=== PATIENT | male | born 1980 | race African-American/Black ===

== ENCOUNTER 2017-09-10 14:21 | Outpatient (CLI) | payer OTHER | END 2017-09-10 14:22 | disposition home or self-care (01) | LOC: BICULT 14:21 | PROVIDERS: ATTEND Urology | DX: N39.41 Urge incontinence (principal) | CPT/HCPCS: 76770 ==

== ENCOUNTER 2017-09-24 09:51 | Day surgery (SDC) | payer OTHER ==
[2017-09-24] MEDS ORDERED: Levofloxacin 500 mg/D5W 100 ml Premix Bag ONE (10:47)
--- NOTE | 2017-09-24 13:49 | OP ---
DATE OF PROCEDURE: 09/24/2017 SERVICE: Urology. SURGEON: Will Iverson M.D. PREOPERATIVE DIAGNOSIS: Neurogenic bladder with overactive bladder and urge incontinence. POSTOPERATIVE DIAGNOSIS: Neurogenic bladder with overactive bladder and urge urinary incontinence. PROCEDURE PERFORMED: Cystoscopy with Botox. INDICATIONS FOR PROCEDURE: Mr. Gutierrez is a 36-year-old black male with a spinal cord injury and neurogenic bladder. He has severe detrusor overactivity with urge incontinence, which has failed to be managed with medical therapy alone. He has been doing well on Botox and is coming in for repeat i njection of 200 units today. All risks and benefits have been discussed and he has agreed to proceed forward. DESCRIPTION OF PROCEDURE: After identification of armband and verification of consent, the patient w as brought back to the operating room where he was placed in dorsal lithotomy position and prepped an d draped in a usual sterile fashion. He did not undergo any anesthesia as the patient is insensate b elow the navel. A rigid 22-Mexican cystoscope was introduced per urethra into the bladder. The bladd er shows signs of spasticity with a grade II trabeculation and mild diffuse erythema, but no evidence of bladder stones, tumors or other concerning lesions. The Botox needle was set to a depth of 4 mm and Botox was injected for a total of 200 units dispersed in 1 mL increments for a total of 30 inject ions throughout the bladder primarily along the posterior and anterior bladder and some on the latera l and one intertrigonal injection in the midline. No injections were performed near the ureteral moise fices. After completion, there was a very minimal amount of bleeding. The bladder was emptied and c ystoscope removed. The patient was then taken out of lithotomy and sent to day stay. COMPLICATIONS: None. ESTIMATED BLOOD LOSS: Minimal. RETAINED TUBES AND DRAINS: None. SPECIMENS: None. DISPOSITION: The patient will be discharged home and follow up with me in 4 weeks. He will do 1 wee k of antibiotics and he will remain on his Toviaz.
== END 2017-09-24 12:20 | disposition home or self-care (01) ==
LOC: SDC 09:51
PROVIDERS: ATTEND Urology
PROC: 3E0K8GC Introduction of Other Therapeutic Substance into Genitourinary Tract, Via Natural or Artificial Opening Endoscopic (ICD-10-PCS; principal; 2017-09-24)
DX: T14.8XXS Other injury of unspecified body region, sequela (principal); N31.9 Neuromuscular dysfunction of bladder, unspecified; N39.41 Urge incontinence; N32.81 Overactive bladder; G82.20 Paraplegia, unspecified; K59.01 Slow transit constipation; Z79.899 Other long term (current) drug therapy
CPT/HCPCS: J0585; J1956

== ENCOUNTER 2018-01-06 09:00 | Outpatient (CLI) | payer OTHER ==
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
== END 2018-01-06 09:01 | disposition home or self-care (01) ==
LOC: WCC 09:00
PROVIDERS: ATTEND Family Medicine
DX: L89.159 Pressure ulcer of sacral region, unspecified stage (principal); L89.319 Pressure ulcer of right buttock, unspecified stage; N31.9 Neuromuscular dysfunction of bladder, unspecified; T14.8XXD Other injury of unspecified body region, subsequent encounter
CPT/HCPCS: 11042; 99204; G0463

== ENCOUNTER 2018-01-06 10:45 | Outpatient (CLI) | payer OTHER ==
--- NOTE | 2018-01-06 11:24 | RAD ---
SINGLE VIEW OF THE PELVIS: Comparison: None. History: Pressure ulcer and osteomyelitis. FINDINGS: Single view of the pelvis shows remodeling of the ischial tuberosity which may by findings from chron ic osteomyelitis. There is also a remodeling in the proximal aspect of the left femur just beneath th e lesser trochanter. Mild degenerative changes are seen in both hips. IMPRESSION: Findings in the left femur and ischial tuberosity could be from bony changes from pressure sore/osteo myelitis. POS: GÉNESIS
== END 2018-01-06 10:46 | disposition home or self-care (01) ==
LOC: RAD 10:45
PROVIDERS: ATTEND Family Medicine
DX: L89.209 Pressure ulcer of unspecified hip, unspecified stage (principal); M86.8X5 Other osteomyelitis, thigh
CPT/HCPCS: 72170

== ENCOUNTER 2018-01-29 10:18 | Outpatient (CLI) | payer OTHER ==
[2018-01-29] MEDS ORDERED: ISOVUE-370 76%-LOCM 1 ML ONE (14:46)
== END 2018-01-29 10:19 | disposition home or self-care (01) ==
LOC: BICCT 10:18
PROVIDERS: ATTEND Family Medicine
DX: L89.150 Pressure ulcer of sacral region, unstageable (principal)
CPT/HCPCS: 72194

== ENCOUNTER 2018-02-18 08:15 | Outpatient (CLI) | payer OTHER ==
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
[2018-02-18] MEDS ORDERED: Sodium Chloride 0.9% 15 ML NEB ONE (12:59)
== END 2018-02-18 08:16 | disposition home or self-care (01) ==
LOC: WCC 08:15
PROVIDERS: ATTEND Family Medicine
DX: L89.159 Pressure ulcer of sacral region, unspecified stage (principal); N31.9 Neuromuscular dysfunction of bladder, unspecified; T14.8XXD Other injury of unspecified body region, subsequent encounter
CPT/HCPCS: A4218

== ENCOUNTER 2021-11-15 01:17 | Inpatient (IN) | payer MEDICAID, SELFPAY ==
[2021-11-15] MEDS ORDERED: Cefepime 2 GM VIAL ONE (01:40)
[2021-11-15] MEDS ORDERED: Vancomycin 1 GM/200 ML BAG ONE (01:40)
[2021-11-15 03:17] LABS: Mean Corpuscular HGB CONC 31.2 g/dL (32.0-36.0); Mean Corpuscular Hemoglobin 26.5 pg (27.0-31.0); Mean Corpuscular Volume 84.9 fL (78.0-98.0); Platelet Count 518 thou/uL (130-400); RBC Distribution Width 15.6 % (11.5-14.5); Red Blood Cell (RBC) Count 3.76 mill/uL (4.70-6.10)
[2021-11-15 03:35] LABS: ALT (SGPT) 56 U/L (8-55); AST (SGOT) 78 U/L (5-34); Albumin 2.7 g/dL (3.5-5.0); Alkaline Phosphatase 127 U/L (40-110); Anion Gap 14 mmol/L (10-20); BUN (Urea Nitrogen) 5 mg/dL (8.9-20.6); Bilirubin, Total 0.8 mg/dL (0.2-1.2); Calc. Creatinine Clearance 0 mL/min (70-130); Calcium 8.3 mg/dL (7.8-10.44); Carbon Dioxide 27 mmol/L (22-29); Chloride 96 mmol/L (98-107); Globulin 5.7 g/dL (2.4-3.5); Glucose 120 mg/dL (70-105); Potassium 4.9 mmol/L (3.5-5.1); Protein, Total 8.4 g/dL (6.0-8.3); Sodium 132 mmol/L (136-145)
[2021-11-15] MEDS ORDERED: Acetaminophen 500 MG TAB ONE (03:39)
[2021-11-15 03:41] LABS: Band 7 % (5-11); Eosinophils 2 % (0-10); Hypochromia MODERATE=16-30 cells (100X) (0-5/hpf); Large Platelets SLIGHT; Lymphocytes 19 % (21-51); MDiff Complete? YES; Metamyelocyte 1 % (0-0); Monocytes 8 % (0-10); Neutrophil 63 % (42-75); Platelet Morphology Comment Appears Increased; Polychromasia SLIGHT = 2-3 cells (100X) (0-2/hpf); Reflex for Review?? YES
[2021-11-15 03:57] LABS: Bilirubin 1+ (Negative); Blood, Urine 1+ (Negative); Clarity Extra Turbid (Clear); Glucose, Urine (Dipstick) Normal (Negative); Ketone, Urine Negative (Negative); Leukocyte 500 Leu/uL (Negative); Nitrite 2+ (Negative); Protein, Urine (Dipstick) 100 mg/dL (Neg-Trace); Specific Gravity, Urine 1.028 (1.002-1.036)
[2021-11-15 04:17] LABS: Bacteria/HPF 4+ HPF (None Seen)
[2021-11-15 04:21] LABS: Squamous Epithelial 0-3 HPF (0-3); WBC/HPF 0-3 HPF (0-3)
[2021-11-15 05:47] LABS: Lactic Acid 0.9 mmol/L (0.5-2.2)
[2021-11-15 05:54] VITALS: BMI 25.9
[2021-11-15] MEDS: Dextrose 5 % And 0.9 % NaCl 1,000 ML IV SCH ×2 (07:20→17:35)
[2021-11-15] MEDS ORDERED: Acetaminophen 325 MG TAB PO PRN (07:25)
[2021-11-15] MEDS ORDERED: Senokot S 8.6-50 MG TAB PO PRN (07:25)
[2021-11-15] MEDS ORDERED: Sodium Chloride 0.9% 1,000 ML IV SCH (08:30)
[2021-11-15] MEDS: Famotidine 20 MG TAB PO SCH ×2 (10:13→20:00)
[2021-11-15] MEDS: Cefepime 2 GM in Sodium Chloride 0.9% 100 ML IVPB SCH ×2 (10:36→18:03)
[2021-11-15] MEDS: VANCOMYCIN 1.25 GM/250 ML BAG 1.25 GM in Premix Bag 1 BAG IVPB SCH ×2 (11:43→19:03)
[2021-11-15 15:22] LABS: SARS-CoV-2 PCR by NAA Not Detected (NotDetected)
[2021-11-15] MEDS: Sodium Chloride 0.9% 1,000 ML IV SCH (20:00)
[2021-11-16 01:57] LABS: Vancomycin, Trough 15.8 ug/mL
[2021-11-16] MEDS: VANCOMYCIN 1.25 GM/250 ML BAG 1.25 GM in Premix Bag 1 BAG IVPB SCH ×3 (02:07→18:09)
[2021-11-16] MEDS: Cefepime 2 GM in Sodium Chloride 0.9% 100 ML IVPB SCH ×3 (03:44→20:31)
[2021-11-16] MEDS: Sodium Chloride 0.9% 1,000 ML IV SCH ×2 (03:45→15:50)
[2021-11-16 06:20] LABS: #Eosinphils 0.4 thou/uL (0.0-0.7); #Lymphocytes 1.2 thou/uL (1.20-3.40); #Monocytes 0.7 thou/uL (0.11-0.59); #Neutrophils 7.8 thou/uL (1.40-6.50); %Basophils 0.1 % (0.0-1.0); %Eosinophils 3.6 % (0.0-10.0); %Lymphocytes 12.2 % (21.0-51.0); %Monocytes 7.2 % (0.0-10.0); Mean Corpuscular HGB CONC 30.6 g/dL (32.0-36.0); Mean Corpuscular Hemoglobin 26.2 pg (27.0-31.0); Mean Corpuscular Volume 85.5 fL (78.0-98.0); Mean Platelet Volume 6.3 fL (7.4-10.4); Platelet Count 438 thou/uL (130-400); RBC Distribution Width 15.2 % (11.5-14.5); Red Blood Cell (RBC) Count 3.43 mill/uL (4.70-6.10); White Blood Cell (WBC) Count 10.2 thou/uL (4.8-10.8)
[2021-11-16 06:46] LABS: ALT (SGPT) 35 U/L (8-55); AST (SGOT) 52 U/L (5-34); Albumin 2.3 g/dL (3.5-5.0); Alkaline Phosphatase 94 U/L (40-110); Anion Gap 9 mmol/L (10-20); BUN (Urea Nitrogen) 5 mg/dL (8.9-20.6); Bilirubin, Total 0.5 mg/dL (0.2-1.2); Calc. Creatinine Clearance 201 mL/min (70-130); Calcium 7.6 mg/dL (7.8-10.44); Carbon Dioxide 28 mmol/L (22-29); Chloride 104 mmol/L (98-107); Globulin 4.3 g/dL (2.4-3.5); Glucose 107 mg/dL (70-105); Potassium 3.1 mmol/L (3.5-5.1); Protein, Total 6.6 g/dL (6.0-8.3); Sodium 138 mmol/L (136-145)
[2021-11-16] MEDS ORDERED: fentaNYL Citrate/PF 100 MCG/2 ML SYRINGE ONE (09:26)
[2021-11-16] MEDS: Polyethylene Glycol 3350 17 GM Packet PO SCH (09:27)
[2021-11-16] MEDS: Famotidine 20 MG TAB PO SCH ×2 (09:27→20:25)
[2021-11-16] MEDS ORDERED: Bupivacaine PF 0.5% 30 ML VIAL ONE (09:30)
[2021-11-16] MEDS ORDERED: EPINEPHrine 1 MG/ML AMP ONE (09:30)
[2021-11-16] MEDS ORDERED: Lidocaine 1% PF 5 ML VIAL ONE (09:45)
[2021-11-16] MEDS ORDERED: Rocuronium Bromide 10 MG/ML (10ML VIAL) ONE (09:45)
[2021-11-16] MEDS ORDERED: Glycopyrrolate 0.2 MG/ML 5 ML SYRINGE ONE (09:45)
[2021-11-16] MEDS ORDERED: Ondansetron PF 4 MG/2 ML Vial ONE (09:45)
[2021-11-16] MEDS ORDERED: PROPOFOL 200 MG/20 ML VIAL ONE (09:45)
[2021-11-16] MEDS ORDERED: Ondansetron HCl/PF 4 MG/2 ML Vial IVP PRN (11:14)
[2021-11-16] MEDS ORDERED: Promethazine HCl 25 MG/ML VIAL IVPB PRN (11:14)
[2021-11-16] MEDS ORDERED: Promethazine HCl 25 MG/ML VIAL IM PRN (11:14)
[2021-11-16] MEDS: Potassium Chloride 20 MEQ TAB PO SCH ×2 (15:50→18:07)
[2021-11-16] MEDS ORDERED: Cefepime 2 GM VIAL ONE (19:26)
[2021-11-16] MEDS: Benzonatate 100 MG CAP PO SCH (20:25)
[2021-11-17] MEDS: Sodium Chloride 0.9% 1,000 ML IV SCH ×2 (01:17→10:57)
[2021-11-17] MEDS: VANCOMYCIN 1.25 GM/250 ML BAG 1.25 GM in Premix Bag 1 BAG IVPB SCH ×2 (01:49→10:45)
[2021-11-17] MEDS: Cefepime 2 GM in Sodium Chloride 0.9% 100 ML IVPB SCH ×2 (04:33→10:57)
[2021-11-17 09:19] LABS: Hemoglobin 9.8 g/dL (14.0-18.0); Mean Corpuscular HGB CONC 29.9 g/dL (32.0-36.0); Mean Corpuscular Hemoglobin 26.1 pg (27.0-31.0); Mean Corpuscular Volume 87.5 fL (78.0-98.0); Mean Platelet Volume 6.4 fL (7.4-10.4); Platelet Count 488 thou/uL (130-400); RBC Distribution Width 15.3 % (11.5-14.5); Red Blood Cell (RBC) Count 3.73 mill/uL (4.70-6.10); White Blood Cell (WBC) Count 8.7 thou/uL (4.8-10.8)
[2021-11-17 09:48] LABS: Vancomycin, Trough 13.4 ug/mL
[2021-11-17 09:49] LABS: Anion Gap 10 mmol/L (10-20); BUN (Urea Nitrogen) 4 mg/dL (8.9-20.6); Calc. Creatinine Clearance 192 mL/min (70-130); Carbon Dioxide 28 mmol/L (22-29); Chloride 105 mmol/L (98-107); Glucose 108 mg/dL (70-105); Potassium 3.5 mmol/L (3.5-5.1); Sodium 139 mmol/L (136-145)
[2021-11-17 09:59] LABS: #Eosinphils 0.3 thou/uL (0.0-0.7); #Lymphocytes 1.5 thou/uL (1.20-3.40); #Monocytes 0.7 thou/uL (0.11-0.59); #Neutrophils 6.1 thou/uL (1.40-6.50); %Basophils 0.5 % (0.0-1.0); %Neutrophils 70.5 % (42.0-75.0); Anisocytosis SLIGHT = 6-15 cells (100X) (0-5/hpf); Hypochromia SLIGHT = 6-15 cells (100X) (0-5/hpf); MDiff Complete? YES; Platelet Morphology Comment Appears Increased; Polychromasia SLIGHT = 2-3 cells (100X) (0-2/hpf); Target Cells SLIGHT = 2-5 cells (100X) (0-1/hpf)
[2021-11-17] MEDS ORDERED: Vancomycin 1.5 GRAM/300 ML BAG 1.5 GM in Premix Bag 1 BAG IVPB SCH ×2 (10:30→18:00)
[2021-11-17] MEDS: Famotidine 20 MG TAB PO SCH ×2 (11:02→19:44)
[2021-11-17] MEDS: Benzonatate 100 MG CAP PO SCH ×3 (11:02→19:44)
[2021-11-17] MEDS: Folic Acid 1 MG TAB PO SCH (11:02)
[2021-11-17] MEDS: Polyethylene Glycol 3350 17 GM Packet PO SCH (11:02)
[2021-11-18] MEDS: Sodium Chloride 0.9% 1,000 ML IV SCH ×4 (00:29→21:13)
[2021-11-18 06:24] LABS: #Eosinphils 0.4 thou/uL (0.0-0.7); #Lymphocytes 1.5 thou/uL (1.20-3.40); #Monocytes 0.7 thou/uL (0.11-0.59); #Neutrophils 4.8 thou/uL (1.40-6.50); %Basophils 0.2 % (0.0-1.0); %Eosinophils 5.3 % (0.0-10.0); %Lymphocytes 19.7 % (21.0-51.0); %Monocytes 9.3 % (0.0-10.0); %Neutrophils 65.5 % (42.0-75.0); Hemoglobin 8.7 g/dL (14.0-18.0); Mean Corpuscular HGB CONC 30.4 g/dL (32.0-36.0); Mean Corpuscular Hemoglobin 26.1 pg (27.0-31.0); Mean Corpuscular Volume 85.9 fL (78.0-98.0); Mean Platelet Volume 6.3 fL (7.4-10.4); Platelet Count 448 thou/uL (130-400); RBC Distribution Width 15.3 % (11.5-14.5); Red Blood Cell (RBC) Count 3.32 mill/uL (4.70-6.10); White Blood Cell (WBC) Count 7.4 thou/uL (4.8-10.8)
[2021-11-18 06:43] LABS: Anion Gap 9 mmol/L (10-20); BUN (Urea Nitrogen) Less than 4 mg/dL (8.9-20.6); Calc. Creatinine Clearance 215 mL/min (70-130); Calcium 7.5 mg/dL (7.8-10.44); Carbon Dioxide 27 mmol/L (22-29); Chloride 107 mmol/L (98-107); Glucose 100 mg/dL (70-105); Potassium 3.6 mmol/L (3.5-5.1); Sodium 139 mmol/L (136-145)
[2021-11-18] MEDS: Benzonatate 100 MG CAP PO SCH ×3 (10:12→21:13)
[2021-11-18] MEDS: Famotidine 20 MG TAB PO SCH ×2 (10:13→21:13)
[2021-11-18] MEDS: Polyethylene Glycol 3350 17 GM Packet PO SCH (10:13)
[2021-11-18] MEDS: Folic Acid 1 MG TAB PO SCH (10:13)
[2021-11-19 07:32] LABS: Hemoglobin 9.2 g/dL (14.0-18.0); Mean Corpuscular HGB CONC 29.8 g/dL (32.0-36.0); Mean Corpuscular Hemoglobin 26.3 pg (27.0-31.0); Mean Corpuscular Volume 88.3 fL (78.0-98.0); Mean Platelet Volume 6.3 fL (7.4-10.4); Platelet Count 466 thou/uL (130-400); RBC Distribution Width 15.8 % (11.5-14.5); Red Blood Cell (RBC) Count 3.51 mill/uL (4.70-6.10); White Blood Cell (WBC) Count 7.5 thou/uL (4.8-10.8)
[2021-11-19 07:38] LABS: Anion Gap 11 mmol/L (10-20); BUN (Urea Nitrogen) Less than 4 mg/dL (8.9-20.6); Calc. Creatinine Clearance 208 mL/min (70-130); Calcium 7.7 mg/dL (7.8-10.44); Carbon Dioxide 26 mmol/L (22-29); Chloride 107 mmol/L (98-107); Glucose 96 mg/dL (70-105); Potassium 3.6 mmol/L (3.5-5.1); Sodium 140 mmol/L (136-145)
[2021-11-19] MEDS: Benzonatate 100 MG CAP PO SCH ×3 (07:54→21:09)
[2021-11-19] MEDS: Folic Acid 1 MG TAB PO SCH (07:54)
[2021-11-19] MEDS: Famotidine 20 MG TAB PO SCH ×2 (07:54→21:08)
[2021-11-19] MEDS: Polyethylene Glycol 3350 17 GM Packet PO SCH (07:55)
[2021-11-19 09:42] LABS: Band 2 % (5-11); Eosinophils 2 % (0-10); Hypochromia SLIGHT = 6-15 cells (100X) (0-5/hpf); Lymphocytes 24 % (21-51); MDiff Complete? YES; Monocytes 3 % (0-10); Neutrophil 69 % (42-75); Platelet Morphology Comment Appears Increased; Polychromasia SLIGHT = 2-3 cells (100X) (0-2/hpf)
[2021-11-19] MEDS: Sodium Chloride 0.9% 1,000 ML IV SCH ×2 (15:38→21:09)
[2021-11-19] MEDS: Ciprofloxacin 500 MG TAB PO SCH (21:09)
[2021-11-20] MEDS: Ciprofloxacin 500 MG TAB PO SCH ×2 (05:12→20:30)
[2021-11-20] MEDS: Sodium Chloride 0.9% 1,000 ML IV SCH ×2 (05:13→16:43)
[2021-11-20] MEDS: Folic Acid 1 MG TAB PO SCH (08:18)
[2021-11-20] MEDS: Polyethylene Glycol 3350 17 GM Packet PO SCH (08:18)
[2021-11-20] MEDS: Benzonatate 100 MG CAP PO SCH ×3 (08:18→20:29)
[2021-11-20] MEDS: Famotidine 20 MG TAB PO SCH ×2 (08:18→20:29)
[2021-11-20 21:48] VITALS: TEMP 98.4
[2021-11-21] MEDS: Sodium Chloride 0.9% 1,000 ML IV SCH ×2 (03:07→08:43)
[2021-11-21] MEDS: Ciprofloxacin 500 MG TAB PO SCH (05:29)
[2021-11-21 07:51] VITALS: BP 128/75
[2021-11-21] MEDS: Polyethylene Glycol 3350 17 GM Packet PO SCH ×2 (08:41→08:44)
[2021-11-21] MEDS: Benzonatate 100 MG CAP PO SCH ×2 (08:43→18:03)
[2021-11-21] MEDS: Famotidine 20 MG TAB PO SCH (08:43)
[2021-11-21] MEDS: Folic Acid 1 MG TAB PO SCH (08:43)
== END 2021-11-21 21:30 | disposition home or self-care (01) | DRG 854 ==
LOC: ERS 01:17 → T4-B 04:18
PROVIDERS: ADMIT Internal Medicine; ATTEND Internal Medicine
PROC: 3E03329 Introduction of Other Anti-infective into Peripheral Vein, Percutaneous Approach (ICD-10-PCS; 2021-11-15)
PROC: 0KBN0ZZ Excision of Right Hip Muscle, Open Approach (ICD-10-PCS; principal; 2021-11-16)
PROC: 0QB30ZZ Excision of Left Pelvic Bone, Open Approach (ICD-10-PCS; 2021-11-16)
PROC: 0QB20ZZ Excision of Right Pelvic Bone, Open Approach (ICD-10-PCS; 2021-11-16)
DX: A41.51 Sepsis due to Escherichia coli [E. coli] (principal); N39.0 Urinary tract infection, site not specified; G82.20 Paraplegia, unspecified; E87.2 Acidosis; E87.1 Hypo-osmolality and hyponatremia; I96 Gangrene, not elsewhere classified; R65.20 Severe sepsis without septic shock; Z20.822 Contact with and (suspected) exposure to COVID-19; E87.6 Hypokalemia; E53.8 Deficiency of other specified B group vitamins; E87.8 Other disorders of electrolyte and fluid balance, not elsewhere classified; D64.9 Anemia, unspecified; L89.152 Pressure ulcer of sacral region, stage 2; F17.210 Nicotine dependence, cigarettes, uncomplicated; L89.320 Pressure ulcer of left buttock, unstageable; N31.9 Neuromuscular dysfunction of bladder, unspecified; A41.59 Other Gram-negative sepsis; Z59.00 Homelessness unspecified; Z99.3 Dependence on wheelchair; Z79.899 Other long term (current) drug therapy
CPT/HCPCS: 36415; 71045; 72170; 80048; 80053; 80202; 81003; 81015; 82607; 82746; 83605; 85025; 85060; 87040; 87070; 87077; 87086; 87186; 87205; 88304; 93005; 96365; 96367; J0171; J0692; J0744; J2405; J2704; J3370; J3490; J7042; J7050; S0020; U0003; U0005

== ENCOUNTER 2022-05-01 19:19 | Inpatient (IN) | payer BC, MEDICAID, OTHER, SELFPAY ==
[2022-05-01] MEDS ORDERED: Vancomycin 1 GM/200 ML (PREMIX FOIL) BAG ONE (19:52)
[2022-05-01 20:01] LABS: Mean Corpuscular HGB CONC 31.2 g/dL (32.0-36.0); Mean Corpuscular Hemoglobin 24.9 pg (27.0-31.0); Mean Corpuscular Volume 79.6 fl (78.0-98.0); Mean Platelet Volume 8.4 fL (7.4-10.4); Platelet Count 252 10x3/uL (130-400); RBC Distribution Width 18.4 % (11.5-14.5); White Blood Cell (WBC) Count 17.7 10x3/uL (4.8-10.8)
[2022-05-01 20:16] LABS: ALT (SGPT) 79 U/L (8-55); AST (SGOT) 180 U/L (5-34); Albumin 3.1 g/dL (3.5-5.0); Alkaline Phosphatase 163 U/L (40-110); Anion Gap 26 mmol/L (10-20); BUN (Urea Nitrogen) 54 mg/dL (8.9-20.6); Bilirubin, Total 1.9 mg/dL (0.2-1.2); Calc. Creatinine Clearance 0 mL/min (70-130); Calcium 8.3 mg/dL (7.8-10.44); Carbon Dioxide 15 mmol/L (22-29); Chloride 100 mmol/L (98-107); Estimated GFR 8; Glucose 82 mg/dL (70-105); Potassium 3.8 mmol/L (3.5-5.1); Protein, Total 8.1 g/dL (6.0-8.3); Sodium 137 mmol/L (136-145)
[2022-05-01] MEDS ORDERED: Cefepime 2 GM VIAL ONE (20:20)
[2022-05-01] MEDS ORDERED: VANCOMYCIN 2 GRAM/500 ML BAG 2 GM in Premix Bag 1 BAG IVPB SCH (20:30)
[2022-05-01 20:32] LABS: Band 25 % (5-11); Hypochromia SLIGHT = 6-15 cells (100X) (0-5/hpf); Lymphocytes 8 % (21-51); MDiff Complete? YES; Monocytes 10 % (0-10); Neutrophil 57 % (42-75); Platelet Morphology Comment Appears Adequate
[2022-05-01 21:44] LABS: Bacteria/HPF 4+ HPF (None Seen); Bilirubin Negative (Negative); Blood, Urine 2+ (Negative); Clarity Turbid (Clear); Glucose, Urine (Dipstick) Normal (Negative); Ketone, Urine Trace mg/dL (Negative); Leukocyte 500 Leu/uL (Negative); Nitrite Negative (Negative); Protein, Urine (Dipstick) 300 mg/dL (Neg-Trace); Specific Gravity, Urine 1.014 (1.002-1.036); Squamous Epithelial None Seen HPF (0-3); Urobilinogen Normal mg/dL (Less than 2); WBC/HPF Greater than 50 HPF (0-3); pH, Urine 7.5 (5.0-9.0)
[2022-05-01] MEDS ORDERED: Norepinephrine 4 MG/4 ML VIAL ONE ×2 (22:11→22:19)
[2022-05-01] MEDS ORDERED: Acetaminophen 500 MG TAB ONE (22:17)
[2022-05-01] MEDS ORDERED: NOREPINEPHRINE 8 MG/250 ML-D5W 250 ML ONE (22:20)
[2022-05-01 22:48] LABS: Lactic Acid 3.7 mmol/L (0.5-2.2)
[2022-05-01] MEDS ORDERED: Acetaminophen 650 MG Suppository PR PRN (22:50)
[2022-05-01] MEDS ORDERED: Ondansetron ODT 4 MG TAB PO PRN (22:50)
[2022-05-01] MEDS ORDERED: Ondansetron PF 4 MG/2 ML Vial IVP PRN (22:50)
[2022-05-01] MEDS ORDERED: NOREPINEPHRINE 8 MG/250 ML-D5W 250 ML IVPB SCH (23:00)
[2022-05-01 23:27] LABS: SARS-CoV-2 NAA Rapid Test Not Detected (NotDetected)
[2022-05-02] MEDS: Sodium Chloride 0.9% 1,000 ML IV SCH ×4 (01:45→18:02)
[2022-05-02 02:31] LABS: Hemoglobin 7.9 g/dL (14.0-18.0); Mean Corpuscular HGB CONC 30.7 g/dL (32.0-36.0); Mean Corpuscular Hemoglobin 24.3 pg (27.0-31.0); Mean Corpuscular Volume 79.1 fl (78.0-98.0); Mean Platelet Volume 8.5 fL (7.4-10.4); Platelet Count 171 10x3/uL (130-400); RBC Distribution Width 18.4 % (11.5-14.5); Red Blood Cell (RBC) Count 3.26 mill/uL (4.70-6.10); White Blood Cell (WBC) Count 15.7 10x3/uL (4.8-10.8)
[2022-05-02 02:41] LABS: Lactic Acid 1.2 mmol/L (0.5-2.2)
[2022-05-02 02:57] LABS: Anion Gap 24 mmol/L (10-20); BUN (Urea Nitrogen) 51 mg/dL (8.9-20.6); Calc. Creatinine Clearance 24 mL/min (70-130); Calcium 7.4 mg/dL (7.8-10.44); Carbon Dioxide 13 mmol/L (22-29); Chloride 105 mmol/L (98-107); Estimated GFR 11; Glucose 103 mg/dL (70-105); Iron 8 ug/dL (65-175); Iron Binding Capacity, Total 160 mcg/dL (261-462); Iron Binding Capacity, Total 163 mcg/dL (261-462); Potassium 3.5 mmol/L (3.5-5.1); Sodium 138 mmol/L (136-145)
[2022-05-02 03:09] LABS: Band 25 % (5-11); Hypochromia SLIGHT = 6-15 cells (100X) (0-5/hpf); Lymphocytes 9 % (21-51); MDiff Complete? YES; Monocytes 10 % (0-10); Neutrophil 56 % (42-75); Platelet Morphology Comment Appears Adequate
[2022-05-02] MEDS ORDERED: VANCOMYCIN 1.25 GM/250 ML BAG 1.25 GM in Premix Bag 1 BAG IVPB SCH (07:00)
[2022-05-02] MEDS ORDERED: Lactated Ringer's 500 ML IV SCH ×2 (08:30→08:45)
[2022-05-02] MEDS ORDERED: Enoxaparin Sodium 30 MG/0.3 ML SYRINGE SC SCH (09:00)
[2022-05-02] MEDS: Heparin 5,000 UNITS/ML VIAL SC SCH ×2 (09:25→20:02)
[2022-05-02 09:55] LABS: Creatinine, Urine 141.46 mg/dL (63-166)
[2022-05-02] MEDS ORDERED: Benzonatate 100 MG CAP PO PRN (09:55)
[2022-05-02] MEDS: Acetaminophen 325 MG TAB PO PRN (10:26)
[2022-05-02] MEDS: Cefepime 1 GM in Sodium Chloride 0.9% 100 ML IVPB SCH (19:55)
[2022-05-02 20:19] LABS: Vancomycin, Random 20.7 ug/mL (See Comment)
[2022-05-02] MEDS ORDERED: Vancomycin Dose by Levels Sliding Scale (Wt > 99) FS SCH (21:00)
[2022-05-03] MEDS: Sodium Chloride 0.9% 1,000 ML IV SCH ×4 (01:29→18:22)
[2022-05-03] MEDS: Heparin 5,000 UNITS/ML VIAL SC SCH ×2 (08:27→20:26)
[2022-05-03] MEDS ORDERED: Guaifenesin DM 100-10/5 ML UDCUP PO PRN (18:07)
[2022-05-03] MEDS: Acetaminophen 325 MG TAB PO PRN (20:25)
[2022-05-03] MEDS: Cefepime 1 GM in Sodium Chloride 0.9% 100 ML IVPB SCH (20:25)
[2022-05-03 21:09] LABS: Vancomycin, Random 11.2 ug/mL (See Comment)
[2022-05-03] MEDS ORDERED: Vancomycin 1 GM in Premix Bag 1 BAG IVPB SCH (21:30)
[2022-05-04 05:38] LABS: ALT (SGPT) 53 U/L (8-55); AST (SGOT) 105 U/L (5-34); Albumin 2.3 g/dL (3.5-5.0); Alkaline Phosphatase 165 U/L (40-110); Anion Gap 14 mmol/L (10-20); BUN (Urea Nitrogen) 48 mg/dL (8.9-20.6); Bilirubin, Total 1.8 mg/dL (0.2-1.2); CRP (Inflammatory) 23.39 mg/dL (= or < 0.5); Calc. Creatinine Clearance 76 mL/min (70-130); Calcium 7.4 mg/dL (7.8-10.44); Carbon Dioxide 16 mmol/L (22-29); Chloride 106 mmol/L (98-107); Estimated GFR 46; Glucose 82 mg/dL (70-105); Protein, Total 6.3 g/dL (6.0-8.3); Sodium 134 mmol/L (136-145)
[2022-05-04 05:41] LABS: Potassium 2.3 mmol/L (3.5-5.1)
[2022-05-04 05:52] LABS: Mean Corpuscular HGB CONC 30.3 g/dL (32.0-36.0); Mean Corpuscular Hemoglobin 23.9 pg (27.0-31.0); Mean Corpuscular Volume 78.9 fl (78.0-98.0); Mean Platelet Volume 10.6 fL (7.4-10.4); Platelet Count 93 10x3/uL (130-400); RBC Distribution Width 18.4 % (11.5-14.5); Red Blood Cell (RBC) Count 2.93 mill/uL (4.70-6.10); White Blood Cell (WBC) Count 10.9 10x3/uL (4.8-10.8)
[2022-05-04 05:53] LABS: Band 5 % (5-11); Hypochromia SLIGHT = 6-15 cells (100X) (0-5/hpf); Lymphocytes 15 % (21-51); MDiff Complete? YES; Monocytes 9 % (0-10); Neutrophil 71 % (42-75); Platelet Morphology Comment Appears Decreased
[2022-05-04] MEDS ORDERED: Potassium Chloride 20 MEQ TAB PO SCH ×2 (06:00→18:30)
[2022-05-04 08:04] LABS: Magnesium 1.6 mg/dL (1.6-2.6)
[2022-05-04] MEDS ORDERED: FLU VACC QS2022-23(6MOS UP)/PF 60 MCG/0.5 ML SYRINGE IM ONE (09:00)
[2022-05-04] MEDS: Saccharomyces boulardii 250 MG CAP PO SCH (09:51)
[2022-05-04] MEDS: Heparin 5,000 UNITS/ML VIAL SC SCH ×2 (09:52→19:35)
[2022-05-04] MEDS ORDERED: Cefepime 1 GM in Sodium Chloride 0.9% 100 ML IVPB SCH (12:30)
[2022-05-04] MEDS: Cefepime 1 GM in Sodium Chloride 0.9% 100 ML IVPB SCH (13:26)
[2022-05-04] MEDS: Sodium Chloride 0.9% 1,000 ML IV SCH (19:34)
[2022-05-04 23:53] LABS: Vancomycin, Random 14.8 ug/mL (See Comment)
[2022-05-04 23:55] LABS: Anion Gap 13 mmol/L (10-20); BUN (Urea Nitrogen) 41 mg/dL (8.9-20.6); Calc. Creatinine Clearance 84 mL/min (70-130); Calcium 7.7 mg/dL (7.8-10.44); Carbon Dioxide 18 mmol/L (22-29); Chloride 110 mmol/L (98-107); Estimated GFR 52; Glucose 105 mg/dL (70-105); Sodium 138 mmol/L (136-145)
[2022-05-04 23:58] LABS: Potassium 2.5 mmol/L (3.5-5.1)
[2022-05-05] MEDS: Cefepime 1 GM in Sodium Chloride 0.9% 100 ML IVPB SCH ×2 (00:45→13:12)
[2022-05-05] MEDS ORDERED: Vancomycin 1 GM in Premix Bag 1 BAG IVPB SCH (01:00)
[2022-05-05] MEDS ORDERED: Electrolyte Replacement Protocol 1 EACH FS SCH (01:00)
[2022-05-05] MEDS: Potassium Chloride 20 MEQ TAB PO SCH ×4 (01:35→15:52)
[2022-05-05] MEDS ORDERED: Magnesium 2 GM/50 ML(in water) 2 GM in Premix Bag 1 BAG IVPB SCH (02:00)
[2022-05-05] MEDS: Sodium Chloride 0.9% 1,000 ML IV SCH ×6 (05:25→21:06)
[2022-05-05] MEDS: Saccharomyces boulardii 250 MG CAP PO SCH (08:54)
[2022-05-05] MEDS: Heparin 5,000 UNITS/ML VIAL SC SCH ×2 (08:54→19:25)
[2022-05-05 13:41] LABS: Hemoglobin 7.1 g/dL (14.0-18.0); Mean Corpuscular HGB CONC 30.9 g/dL (32.0-36.0); Mean Corpuscular Hemoglobin 24.2 pg (27.0-31.0); Mean Corpuscular Volume 78.3 fl (78.0-98.0); Mean Platelet Volume 11.6 fL (7.4-10.4); Platelet Count 88 10x3/uL (130-400); RBC Distribution Width 18.5 % (11.5-14.5); Red Blood Cell (RBC) Count 2.95 mill/uL (4.70-6.10); White Blood Cell (WBC) Count 13.2 10x3/uL (4.8-10.8)
[2022-05-05 14:04] LABS: Anisocytosis SLIGHT = 6-15 cells (100X) (0-5/hpf); Band 6 % (5-11); Hypochromia SLIGHT = 6-15 cells (100X) (0-5/hpf); Lymphocytes 17 % (21-51); MDiff Complete? YES; Neutrophil 78 % (42-75); Platelet Morphology Comment Appears Decreased; Polychromasia SLIGHT = 2-3 cells (100X) (0-2/hpf); Target Cells SLIGHT = 2-5 cells (100X) (0-1/hpf)
[2022-05-05 14:08] LABS: ALT (SGPT) 51 U/L (8-55); AST (SGOT) 69 U/L (5-34); Albumin 2.3 g/dL (3.5-5.0); Alkaline Phosphatase 141 U/L (40-110); Anion Gap 12 mmol/L (10-20); BUN (Urea Nitrogen) 37 mg/dL (8.9-20.6); Bilirubin, Total 1.5 mg/dL (0.2-1.2); Calc. Creatinine Clearance 88 mL/min (70-130); Calcium 7.8 mg/dL (7.8-10.44); Carbon Dioxide 19 mmol/L (22-29); Chloride 113 mmol/L (98-107); Estimated GFR 55; Globulin 4.1 g/dL (2.4-3.5); Glucose 137 mg/dL (70-105); Potassium 3.2 mmol/L (3.5-5.1); Protein, Total 6.4 g/dL (6.0-8.3); Sodium 141 mmol/L (136-145)
[2022-05-05 14:10] LABS: Potassium 3.2 mmol/L (3.5-5.1)
[2022-05-05] MEDS: Temazepam 15 MG CAP PO PRN (19:26)
[2022-05-06] MEDS: Cefepime 1 GM in Sodium Chloride 0.9% 100 ML IVPB SCH (01:03)
[2022-05-06] MEDS: Sodium Chloride 0.9% 1,000 ML IV SCH ×3 (04:41→20:13)
[2022-05-06 07:22] LABS: Mean Corpuscular HGB CONC 30.7 g/dL (32.0-36.0); Mean Corpuscular Hemoglobin 24.6 pg (27.0-31.0); Mean Corpuscular Volume 79.9 fl (78.0-98.0); Mean Platelet Volume 10.7 fL (7.4-10.4); Platelet Count 121 10x3/uL (130-400); RBC Distribution Width 18.8 % (11.5-14.5); Red Blood Cell (RBC) Count 2.86 mill/uL (4.70-6.10); White Blood Cell (WBC) Count 16.7 10x3/uL (4.8-10.8)
[2022-05-06 07:44] LABS: Anion Gap 12 mmol/L (10-20); BUN (Urea Nitrogen) 33 mg/dL (8.9-20.6); Calc. Creatinine Clearance 101 mL/min (70-130); Calcium 7.8 mg/dL (7.8-10.44); Carbon Dioxide 17 mmol/L (22-29); Chloride 113 mmol/L (98-107); Estimated GFR 65; Glucose 125 mg/dL (70-105); Magnesium 1.9 mg/dL (1.6-2.6); Potassium 3.2 mmol/L (3.5-5.1); Sodium 139 mmol/L (136-145)
[2022-05-06] MEDS: Heparin 5,000 UNITS/ML VIAL SC SCH ×2 (07:58→21:29)
[2022-05-06] MEDS: Saccharomyces boulardii 250 MG CAP PO SCH (08:55)
[2022-05-06] MEDS: Potassium Chloride 20 MEQ TAB PO SCH ×2 (08:55→17:09)
[2022-05-06 11:12] LABS: Eosinophils 4 % (0-10); Hypochromia SLIGHT = 6-15 cells (100X) (0-5/hpf); Lymphocytes 13 % (21-51); MDiff Complete? YES; Microcytosis SLIGHT = 6-15 cells (100X) (0-5/hpf); Monocytes 3 % (0-10); Neutrophil 80 % (42-75); Platelet Morphology Comment Appears Decreased; Polychromasia SLIGHT = 2-3 cells (100X) (0-2/hpf); Target Cells SLIGHT = 2-5 cells (100X) (0-1/hpf)
[2022-05-06 12:00] VITALS: BMI 29.8
[2022-05-06] MEDS ORDERED: Magnesium 2 GM/50 ML(in water) 2 GM in Premix Bag 1 BAG IVPB SCH (12:00)
[2022-05-06] MEDS ORDERED: Potassium Chloride 20 MEQ TAB PO SCH (12:00)
[2022-05-06] MEDS: Cefepime 2 GM in Sodium Chloride 0.9% 100 ML IVPB SCH (13:54)
[2022-05-06 16:21] LABS: Potassium 3.6 mmol/L (3.5-5.1)
[2022-05-06] MEDS: Temazepam 15 MG CAP PO PRN (20:24)
[2022-05-07] MEDS: Cefepime 2 GM in Sodium Chloride 0.9% 100 ML IVPB SCH ×2 (01:50→14:22)
[2022-05-07] MEDS ORDERED: Melatonin 3 MG TAB PO PRN (02:54)
[2022-05-07 06:51] LABS: Hemoglobin 5.9 g/dL (14.0-18.0); Mean Corpuscular HGB CONC 30.9 g/dL (32.0-36.0); Mean Corpuscular Hemoglobin 24.5 pg (27.0-31.0); Mean Corpuscular Volume 79.5 fl (78.0-98.0); Mean Platelet Volume 10.3 fL (7.4-10.4); Platelet Count 135 10x3/uL (130-400); RBC Distribution Width 18.7 % (11.5-14.5); Red Blood Cell (RBC) Count 2.42 mill/uL (4.70-6.10); White Blood Cell (WBC) Count 18.5 10x3/uL (4.8-10.8)
[2022-05-07 07:06] LABS: Anion Gap 12 mmol/L (10-20); BUN (Urea Nitrogen) 24 mg/dL (8.9-20.6); Calc. Creatinine Clearance 113 mL/min (70-130); Calcium 7.8 mg/dL (7.8-10.44); Carbon Dioxide 18 mmol/L (22-29); Chloride 118 mmol/L (98-107); Estimated GFR 74; Glucose 127 mg/dL (70-105); Potassium 3.5 mmol/L (3.5-5.1); Sodium 144 mmol/L (136-145)
[2022-05-07] MEDS: Heparin 5,000 UNITS/ML VIAL SC SCH (08:32)
[2022-05-07] MEDS: Saccharomyces boulardii 250 MG CAP PO SCH (08:33)
[2022-05-07] MEDS: Potassium Chloride 20 MEQ TAB PO SCH ×2 (08:33→16:13)
[2022-05-07] MEDS: Sodium Chloride 0.9% 1,000 ML IV SCH ×3 (08:34→23:05)
[2022-05-07] MEDS ORDERED: VANCOMYCIN 1.25 GM/250 ML BAG IVPB SCH ×2 (08:45→21:00)
[2022-05-07] MEDS ORDERED: Vancomycin 1.5 GRAM/300 ML BAG 1.5 GM in Premix Bag 1 BAG IVPB SCH (09:00)
[2022-05-07 09:33] LABS: Anisocytosis SLIGHT = 6-15 cells (100X) (0-5/hpf); Band 20 % (5-11); Hypochromia SLIGHT = 6-15 cells (100X) (0-5/hpf); Lymphocytes 7 % (21-51); MDiff Complete? YES; Monocytes 2 % (0-10); Neutrophil 71 % (42-75); Platelet Morphology Comment Appears Adequate; Target Cells SLIGHT = 2-5 cells (100X) (0-1/hpf)
[2022-05-07 11:58] LABS: Hemoglobin 7.4 g/dL (14.0-18.0)
[2022-05-07] MEDS ORDERED: Benzonatate 100 MG CAP PO SCH (12:00)
[2022-05-07] MEDS: Vancomycin 1.5 GRAM/300 ML BAG 1.5 GM in Premix Bag 1 BAG IVPB SCH ×2 (12:04→23:05)
[2022-05-07 14:26] LABS: Ref Lab Test Ordered Aerobe ID & Suscept; Reference Lab Name LABCORP
[2022-05-07 16:07] LABS: Bacteria/HPF 1+ HPF (None Seen); Bilirubin Negative (Negative); Blood, Urine 1+ (Negative); CAUTI Indications for Culture Alt mental st,lethar; Clarity Clear (Clear); Glucose, Urine (Dipstick) Normal (Negative); Ketone, Urine Negative (Negative); Leukocyte 75 Leu/uL (Negative); Nitrite Negative (Negative); Protein, Urine (Dipstick) 20 mg/dL (Neg-Trace); Specific Gravity, Urine 1.005 (1.002-1.036); Squamous Epithelial 0-3 HPF (0-3); Urobilinogen Normal mg/dL (Less than 2); WBC/HPF 21-50 HPF (0-3)
[2022-05-07 16:09] LABS: Urine Culture Reflex Yes Yes
[2022-05-07] MEDS: Benzonatate 100 MG CAP PO SCH ×2 (16:13→20:28)
[2022-05-08] MEDS: Cefepime 2 GM in Sodium Chloride 0.9% 100 ML IVPB SCH ×2 (01:42→13:57)
[2022-05-08] MEDS: Saccharomyces boulardii 250 MG CAP PO SCH (08:18)
[2022-05-08] MEDS: Benzonatate 100 MG CAP PO SCH ×3 (08:18→19:23)
[2022-05-08] MEDS: Potassium Chloride 20 MEQ TAB PO SCH ×2 (08:18→17:22)
[2022-05-08] MEDS: Vancomycin 1.5 GRAM/300 ML BAG 1.5 GM in Premix Bag 1 BAG IVPB SCH (11:15)
[2022-05-08] MEDS ORDERED: Iron, Sodium Ferric Gluconate 250 MG in Sodium Chloride 0.9% 250 ML 250 ML IVPB SCH (11:45)
[2022-05-08] MEDS: Sodium Chloride 0.9% 1,000 ML IV SCH (15:05)
[2022-05-08 15:45] LABS: Eosinophils 1 % (0-10); Hemoglobin 7.6 g/dL (14.0-18.0); Hypochromia SLIGHT = 6-15 cells (100X) (0-5/hpf); Lymphocytes 14 % (21-51); MDiff Complete? YES; Mean Corpuscular HGB CONC 31.8 g/dL (32.0-36.0); Mean Corpuscular Hemoglobin 25.6 pg (27.0-31.0); Mean Corpuscular Volume 80.6 fl (78.0-98.0); Mean Platelet Volume 10.2 fL (7.4-10.4); Monocytes 4 % (0-10); Myelocyte 1 % (0-0); Neutrophil 79 % (42-75); Platelet Count 213 10x3/uL (130-400); Platelet Morphology Comment Appears Adequate; Polychromasia SLIGHT = 2-3 cells (100X) (0-2/hpf); RBC Distribution Width 19.5 % (11.5-14.5); Reactive Lymphocytes 1 % (0-10); Red Blood Cell (RBC) Count 2.97 mill/uL (4.70-6.10); Target Cells MODERATE= 6-15 cells (100X) (0-1/hpf); White Blood Cell (WBC) Count 19.8 10x3/uL (4.8-10.8)
[2022-05-08 16:07] LABS: Anion Gap 12 mmol/L (10-20); BUN (Urea Nitrogen) 17 mg/dL (8.9-20.6); Calc. Creatinine Clearance 123 mL/min (70-130); Calcium 7.7 mg/dL (7.8-10.44); Carbon Dioxide 17 mmol/L (22-29); Chloride 117 mmol/L (98-107); Estimated GFR 82; Glucose 107 mg/dL (70-105); Potassium 3.9 mmol/L (3.5-5.1); Sodium 142 mmol/L (136-145)
[2022-05-08 22:59] LABS: Vancomycin, Trough 40.5 ug/mL
[2022-05-09] MEDS: Vancomycin 1.5 GRAM/300 ML BAG 1.5 GM in Premix Bag 1 BAG IVPB SCH ×2 (01:06→23:47)
[2022-05-09] MEDS: Cefepime 2 GM in Sodium Chloride 0.9% 100 ML IVPB SCH ×2 (01:49→12:28)
[2022-05-09] MEDS: Sodium Chloride 0.9% 1,000 ML IV SCH ×2 (05:12→17:14)
[2022-05-09 06:28] LABS: #Eosinphils 0.3 thou/uL (0.0-0.7); #Lymphocytes 1.7 thou/uL (1.20-3.40); #Monocytes 0.6 thou/uL (0.11-0.59); #Neutrophils 16.1 thou/uL (1.40-6.50); %Basophils 0.1 % (0.0-1.0); %Eosinophils 1.7 % (0.0-10.0); %Monocytes 3.1 % (0.0-10.0); %Neutrophils 86.1 % (42.0-75.0); Mean Corpuscular HGB CONC 31.3 g/dL (32.0-36.0); Mean Corpuscular Hemoglobin 25.5 pg (27.0-31.0); Mean Corpuscular Volume 81.4 fl (78.0-98.0); Mean Platelet Volume 9.7 fL (7.4-10.4); Platelet Count 224 10x3/uL (130-400); RBC Distribution Width 19.7 % (11.5-14.5); Red Blood Cell (RBC) Count 2.73 mill/uL (4.70-6.10); White Blood Cell (WBC) Count 18.7 10x3/uL (4.8-10.8)
[2022-05-09 06:47] LABS: Anion Gap 11 mmol/L (10-20); BUN (Urea Nitrogen) 13 mg/dL (8.9-20.6); Calc. Creatinine Clearance 129 mL/min (70-130); Calcium 7.6 mg/dL (7.8-10.44); Carbon Dioxide 19 mmol/L (22-29); Chloride 119 mmol/L (98-107); Estimated GFR 87; Glucose 94 mg/dL (70-105); Potassium 3.7 mmol/L (3.5-5.1); Sodium 145 mmol/L (136-145)
[2022-05-09 06:52] LABS: Vancomycin, Random 31.9 ug/mL (See Comment)
[2022-05-09] MEDS: Benzonatate 100 MG CAP PO SCH ×3 (08:23→20:11)
[2022-05-09] MEDS: Saccharomyces boulardii 250 MG CAP PO SCH (08:23)
[2022-05-09] MEDS: Potassium Chloride 20 MEQ TAB PO SCH ×2 (08:23→17:15)
[2022-05-09] MEDS ORDERED: Midazolam HCl 2 mg/2 ml Vial ONE (18:02)
[2022-05-09] MEDS ORDERED: fentaNYL PF 100 MCG/2 ML SYRINGE ONE (18:02)
[2022-05-09] MEDS ORDERED: Bupivacaine/Epinephrine 0.25% 30 ML VIAL ONE (18:12)
[2022-05-09] MEDS ORDERED: PROPOFOL 200 MG/20 ML VIAL ONE (18:20)
[2022-05-09] MEDS ORDERED: Ondansetron PF 4 MG/2 ML Vial ONE (18:20)
[2022-05-09] MEDS ORDERED: Phenylephrine 10 MG/ML VIAL ONE (18:20)
[2022-05-09] MEDS ORDERED: Promethazine HCl 25 MG/ML VIAL IM PRN (19:28)
[2022-05-09] MEDS ORDERED: PACU-Morphine 4MG/ML VIAL SLOW IVP PRN (19:28)
[2022-05-09] MEDS ORDERED: Promethazine HCl 25 MG/ML VIAL IVPB PRN (19:28)
[2022-05-09] MEDS ORDERED: HYDROmorphone 2 MG/ML VIAL SLOW IVP PRN (19:28)
[2022-05-09] MEDS ORDERED: Ondansetron HCl/PF 4 MG/2 ML Vial IVP PRN (19:28)
[2022-05-09 22:28] LABS: Vancomycin, Random 18.5 ug/mL (See Comment)
[2022-05-10] MEDS: Cefepime 2 GM in Sodium Chloride 0.9% 100 ML IVPB SCH ×2 (00:35→14:19)
[2022-05-10] MEDS: Vancomycin HCl 750 MG in Sodium Chloride 0.9% 250 ML 250 ML IVPB SCH ×3 (01:27→17:55)
[2022-05-10] MEDS: Sodium Chloride 0.9% 1,000 ML IV SCH (07:03)
[2022-05-10] MEDS: Benzonatate 100 MG CAP PO SCH ×3 (08:19→20:39)
[2022-05-10] MEDS: Potassium Chloride 20 MEQ TAB PO SCH ×2 (08:19→16:49)
[2022-05-10] MEDS: Saccharomyces boulardii 250 MG CAP PO SCH (08:19)
[2022-05-10 08:29] LABS: #Basophils 0.1 thou/uL (0.0-0.2); #Eosinphils 0.2 thou/uL (0.0-0.7); #Lymphocytes 1.7 thou/uL (1.20-3.40); #Monocytes 0.6 thou/uL (0.11-0.59); %Basophils 0.3 % (0.0-1.0); %Eosinophils 1.3 % (0.0-10.0); %Lymphocytes 10.1 % (21.0-51.0); %Monocytes 3.5 % (0.0-10.0); %Neutrophils 84.8 % (42.0-75.0); Hemoglobin 6.8 g/dL (14.0-18.0); Mean Corpuscular HGB CONC 29.4 g/dL (32.0-36.0); Mean Corpuscular Hemoglobin 24.8 pg (27.0-31.0); Mean Corpuscular Volume 84.4 fl (78.0-98.0); Mean Platelet Volume 9.3 fL (7.4-10.4); Platelet Count 241 10x3/uL (130-400); RBC Distribution Width 20.7 % (11.5-14.5); Red Blood Cell (RBC) Count 2.73 mill/uL (4.70-6.10); White Blood Cell (WBC) Count 16.5 10x3/uL (4.8-10.8)
[2022-05-10 08:43] LABS: Anion Gap 11 mmol/L (10-20); BUN (Urea Nitrogen) 11 mg/dL (8.9-20.6); Calc. Creatinine Clearance 156 mL/min (70-130); Carbon Dioxide 19 mmol/L (22-29); Chloride 117 mmol/L (98-107); Estimated GFR 109; Glucose 113 mg/dL (70-105); Potassium 3.3 mmol/L (3.5-5.1); Sodium 144 mmol/L (136-145)
[2022-05-10 08:47] LABS: Calcium 6.9 mg/dL (7.8-10.44)
[2022-05-10 11:37] LABS: Magnesium 1.1 mg/dL (1.6-2.6)
[2022-05-10] MEDS ORDERED: Potassium Chloride 20 MEQ TAB PO SCH (12:00)
[2022-05-10] MEDS ORDERED: Calcium Gluc 4.6 MEQ/10 ML (100 MG/ML) SLOW IVP SCH (12:00)
[2022-05-10] MEDS ORDERED: Magnesium Sulfate In Water 4 GM in Premix Bag 1 BAG IVPB SCH ×2 (12:45→16:30)
[2022-05-10] MEDS ORDERED: Magnesium Sulfate 4 GM in Sodium Chloride 0.9% 250 ML 250 ML IVPB SCH (16:15)
[2022-05-11] MEDS: Cefepime 2 GM in Sodium Chloride 0.9% 100 ML IVPB SCH ×2 (01:18→14:15)
[2022-05-11] MEDS: Vancomycin HCl 750 MG in Sodium Chloride 0.9% 250 ML 250 ML IVPB SCH ×2 (02:11→10:54)
[2022-05-11 05:43] LABS: #Eosinphils 0.2 thou/uL (0.0-0.7); #Lymphocytes 1.5 thou/uL (1.20-3.40); #Monocytes 0.5 thou/uL (0.11-0.59); #Neutrophils 13.5 thou/uL (1.40-6.50); %Basophils 0.1 % (0.0-1.0); %Eosinophils 1.5 % (0.0-10.0); %Lymphocytes 9.8 % (21.0-51.0); %Monocytes 3.1 % (0.0-10.0); %Neutrophils 85.5 % (42.0-75.0); Hemoglobin 7.6 g/dL (14.0-18.0); Mean Corpuscular HGB CONC 31.4 g/dL (32.0-36.0); Mean Corpuscular Hemoglobin 26.2 pg (27.0-31.0); Mean Corpuscular Volume 83.3 fl (78.0-98.0); Mean Platelet Volume 9.5 fL (7.4-10.4); Platelet Count 265 10x3/uL (130-400); RBC Distribution Width 20.3 % (11.5-14.5); White Blood Cell (WBC) Count 15.8 10x3/uL (4.8-10.8)
[2022-05-11 06:03] LABS: Anion Gap 12 mmol/L (10-20); BUN (Urea Nitrogen) 8 mg/dL (8.9-20.6); Calc. Creatinine Clearance 168 mL/min (70-130); Calcium 7.5 mg/dL (7.8-10.44); Carbon Dioxide 20 mmol/L (22-29); Chloride 117 mmol/L (98-107); Estimated GFR 113; Glucose 100 mg/dL (70-105); Potassium 3.8 mmol/L (3.5-5.1); Sodium 145 mmol/L (136-145)
[2022-05-11 06:09] LABS: Vancomycin, Trough 31.8 ug/mL
[2022-05-11] MEDS: Benzonatate 100 MG CAP PO SCH ×3 (08:23→20:11)
[2022-05-11] MEDS: Saccharomyces boulardii 250 MG CAP PO SCH (08:23)
[2022-05-11] MEDS: Potassium Chloride 20 MEQ TAB PO SCH ×2 (08:23→17:18)
[2022-05-11 10:47] LABS: Vancomycin, Trough 26.1 ug/mL
[2022-05-11] MEDS: Vancomycin HCl 500 MG in Sodium Chloride 0.9% 100 ML IVPB SCH (16:18)
[2022-05-12] MEDS: Vancomycin HCl 500 MG in Sodium Chloride 0.9% 100 ML IVPB SCH ×3 (02:00→18:20)
[2022-05-12] MEDS: Cefepime 2 GM in Sodium Chloride 0.9% 100 ML IVPB SCH ×2 (02:00→13:43)
[2022-05-12] MEDS ORDERED: Loperamide HCl 2 MG CAP PO SCH (04:45)
[2022-05-12 07:40] LABS: #Eosinphils 0.2 thou/uL (0.0-0.7); #Lymphocytes 1.7 thou/uL (1.20-3.40); #Monocytes 0.5 thou/uL (0.11-0.59); #Neutrophils 11.2 thou/uL (1.40-6.50); %Basophils 0.1 % (0.0-1.0); %Eosinophils 1.4 % (0.0-10.0); %Lymphocytes 12.2 % (21.0-51.0); %Monocytes 3.5 % (0.0-10.0); %Neutrophils 82.7 % (42.0-75.0); Hemoglobin 8.1 g/dL (14.0-18.0); Mean Corpuscular HGB CONC 32.3 g/dL (32.0-36.0); Mean Corpuscular Hemoglobin 27.3 pg (27.0-31.0); Mean Corpuscular Volume 84.4 fl (78.0-98.0); Mean Platelet Volume 9.1 fL (7.4-10.4); Platelet Count 273 10x3/uL (130-400); RBC Distribution Width 20.5 % (11.5-14.5); Red Blood Cell (RBC) Count 2.95 mill/uL (4.70-6.10); White Blood Cell (WBC) Count 13.5 10x3/uL (4.8-10.8)
[2022-05-12 07:53] LABS: Anion Gap 11 mmol/L (10-20); BUN (Urea Nitrogen) 8 mg/dL (8.9-20.6); CRP (Inflammatory) 10.11 mg/dL (= or < 0.5); Calc. Creatinine Clearance 158 mL/min (70-130); Carbon Dioxide 21 mmol/L (22-29); Chloride 114 mmol/L (98-107); Estimated GFR 111; Glucose 90 mg/dL (70-105); Potassium 4.1 mmol/L (3.5-5.1); Sodium 142 mmol/L (136-145)
[2022-05-12 08:21] LABS: Magnesium 1.8 mg/dL (1.6-2.6); Phosphorus 3.3 mg/dL (2.3-4.7)
[2022-05-12] MEDS: Benzonatate 100 MG CAP PO SCH (08:48)
[2022-05-12] MEDS: Potassium Chloride 20 MEQ TAB PO SCH (08:48)
[2022-05-12] MEDS: Saccharomyces boulardii 250 MG CAP PO SCH (08:48)
[2022-05-12] MEDS ORDERED: Magnesium 2 GM/50 ML(in water) 2 GM in Premix Bag 1 BAG IVPB SCH (09:00)
[2022-05-12] MEDS ORDERED: Benzonatate 100 MG CAP PO PRN (13:10)
[2022-05-12 17:39] LABS: Vancomycin, Trough 19.4 ug/mL
[2022-05-12] MEDS: Zinc Sulfate 220 MG CAP PO SCH (20:34)
[2022-05-12] MEDS: Folic Acid 1 MG TAB PO SCH (20:34)
[2022-05-12] MEDS: Cyanocobalamin (Vitamin B-12) 1,000 MCG TAB PO SCH (20:35)
[2022-05-13] MEDS: Vancomycin HCl 500 MG in Sodium Chloride 0.9% 100 ML IVPB SCH ×3 (01:20→22:56)
[2022-05-13] MEDS: Cefepime 2 GM in Sodium Chloride 0.9% 100 ML IVPB SCH ×2 (04:18→12:54)
[2022-05-13 08:32] LABS: #Eosinphils 0.2 thou/uL (0.0-0.7); #Lymphocytes 1.8 thou/uL (1.20-3.40); #Monocytes 0.5 thou/uL (0.11-0.59); #Neutrophils 8.9 thou/uL (1.40-6.50); %Basophils 0.2 % (0.0-1.0); %Eosinophils 1.6 % (0.0-10.0); %Lymphocytes 16.1 % (21.0-51.0); %Monocytes 4.2 % (0.0-10.0); %Neutrophils 77.9 % (42.0-75.0); Hemoglobin 8.2 g/dL (14.0-18.0); Mean Corpuscular HGB CONC 31.8 g/dL (32.0-36.0); Mean Corpuscular Hemoglobin 27.1 pg (27.0-31.0); Mean Corpuscular Volume 85.3 fl (78.0-98.0); Platelet Count 284 10x3/uL (130-400); RBC Distribution Width 20.5 % (11.5-14.5); Red Blood Cell (RBC) Count 3.03 mill/uL (4.70-6.10); White Blood Cell (WBC) Count 11.4 10x3/uL (4.8-10.8)
[2022-05-13] MEDS: Saccharomyces boulardii 250 MG CAP PO SCH (08:49)
[2022-05-13] MEDS: Potassium Chloride 20 MEQ TAB PO SCH (08:49)
[2022-05-13] MEDS: Multivit, Therapeutic 1 TAB PO SCH (08:49)
[2022-05-13 08:58] LABS: ALT (SGPT) 9 U/L (8-55); AST (SGOT) 10 U/L (5-34); Albumin 2.7 g/dL (3.5-5.0); Alkaline Phosphatase 109 U/L (40-110); Anion Gap 9 mmol/L (10-20); BUN (Urea Nitrogen) 8 mg/dL (8.9-20.6); Bilirubin, Total 0.8 mg/dL (0.2-1.2); Calc. Creatinine Clearance 155 mL/min (70-130); Carbon Dioxide 25 mmol/L (22-29); Chloride 113 mmol/L (98-107); Estimated GFR 108; Glucose 89 mg/dL (70-105); Magnesium 1.9 mg/dL (1.6-2.6); Potassium 4.1 mmol/L (3.5-5.1); Protein, Total 7.7 g/dL (6.0-8.3); Sodium 143 mmol/L (136-145)
[2022-05-13] MEDS ORDERED: Magnesium 2 GM/50 ML(in water) 2 GM in Premix Bag 1 BAG IVPB SCH (10:15)
[2022-05-13 17:29] LABS: Vancomycin, Trough 23.1 ug/mL
[2022-05-13] MEDS: Cyanocobalamin (Vitamin B-12) 1,000 MCG TAB PO SCH (19:49)
[2022-05-13] MEDS: Folic Acid 1 MG TAB PO SCH (19:49)
[2022-05-13] MEDS: Zinc Sulfate 220 MG CAP PO SCH (19:50)
[2022-05-13] MEDS: Senokot S 8.6-50 MG TAB PO SCH (19:51)
[2022-05-14] MEDS: Cefepime 2 GM in Sodium Chloride 0.9% 100 ML IVPB SCH ×2 (01:05→13:00)
[2022-05-14 05:59] LABS: #Eosinphils 0.2 thou/uL (0.0-0.7); #Lymphocytes 1.7 thou/uL (1.20-3.40); #Monocytes 0.5 thou/uL (0.11-0.59); %Basophils 0.1 % (0.0-1.0); %Eosinophils 1.7 % (0.0-10.0); %Lymphocytes 16.4 % (21.0-51.0); %Monocytes 4.8 % (0.0-10.0); Hemoglobin 7.7 g/dL (14.0-18.0); Mean Corpuscular HGB CONC 31.2 g/dL (32.0-36.0); Mean Corpuscular Hemoglobin 26.3 pg (27.0-31.0); Mean Corpuscular Volume 84.4 fl (78.0-98.0); Mean Platelet Volume 9.2 fL (7.4-10.4); Platelet Count 306 10x3/uL (130-400); RBC Distribution Width 20.8 % (11.5-14.5); Red Blood Cell (RBC) Count 2.93 mill/uL (4.70-6.10); White Blood Cell (WBC) Count 10.4 10x3/uL (4.8-10.8)
[2022-05-14 06:27] LABS: Anion Gap 11 mmol/L (10-20); BUN (Urea Nitrogen) 7 mg/dL (8.9-20.6); Calc. Creatinine Clearance 166 mL/min (70-130); Carbon Dioxide 22 mmol/L (22-29); Chloride 111 mmol/L (98-107); Estimated GFR 112; Glucose 90 mg/dL (70-105); Potassium 3.9 mmol/L (3.5-5.1); Sodium 140 mmol/L (136-145)
[2022-05-14] MEDS: Vancomycin HCl 500 MG in Sodium Chloride 0.9% 100 ML IVPB SCH ×2 (08:21→21:57)
[2022-05-14] MEDS: Saccharomyces boulardii 250 MG CAP PO SCH (08:22)
[2022-05-14] MEDS: Multivit, Therapeutic 1 TAB PO SCH (08:22)
[2022-05-14] MEDS: Senokot S 8.6-50 MG TAB PO SCH ×3 (08:22→22:01)
[2022-05-14] MEDS: Potassium Chloride 20 MEQ TAB PO SCH (08:22)
[2022-05-14] MEDS ORDERED: Heparin 1,000 UNITS/ML VIAL ONE (09:58)
[2022-05-14] MEDS: Folic Acid 1 MG TAB PO SCH (21:57)
[2022-05-14] MEDS: Cyanocobalamin (Vitamin B-12) 1,000 MCG TAB PO SCH (21:57)
[2022-05-14] MEDS: Zinc Sulfate 220 MG CAP PO SCH (21:57)
[2022-05-15] MEDS: Cefepime 2 GM in Sodium Chloride 0.9% 100 ML IVPB SCH ×2 (01:17→13:04)
[2022-05-15] MEDS: Saccharomyces boulardii 250 MG CAP PO SCH (08:23)
[2022-05-15] MEDS: Multivit, Therapeutic 1 TAB PO SCH (08:23)
[2022-05-15] MEDS: Potassium Chloride 20 MEQ TAB PO SCH (08:23)
[2022-05-15] MEDS: Senokot S 8.6-50 MG TAB PO SCH ×2 (08:24→21:45)
[2022-05-15 09:34] LABS: #Eosinphils 0.1 thou/uL (0.0-0.7); #Lymphocytes 1.7 thou/uL (1.20-3.40); #Monocytes 0.5 thou/uL (0.11-0.59); #Neutrophils 6.5 thou/uL (1.40-6.50); %Basophils 0.3 % (0.0-1.0); %Eosinophils 1.5 % (0.0-10.0); %Lymphocytes 18.8 % (21.0-51.0); %Monocytes 5.4 % (0.0-10.0); %Neutrophils 73.9 % (42.0-75.0); Hemoglobin 8.6 g/dL (14.0-18.0); Mean Corpuscular Hemoglobin 26.6 pg (27.0-31.0); Mean Corpuscular Volume 85.9 fl (78.0-98.0); Mean Platelet Volume 8.8 fL (7.4-10.4); Platelet Count 319 10x3/uL (130-400); RBC Distribution Width 20.8 % (11.5-14.5); Red Blood Cell (RBC) Count 3.23 mill/uL (4.70-6.10); White Blood Cell (WBC) Count 8.9 10x3/uL (4.8-10.8)
[2022-05-15 09:41] LABS: Anion Gap 12 mmol/L (10-20); BUN (Urea Nitrogen) 9 mg/dL (8.9-20.6); Calc. Creatinine Clearance 166 mL/min (70-130); Calcium 8.2 mg/dL (7.8-10.44); Carbon Dioxide 24 mmol/L (22-29); Chloride 110 mmol/L (98-107); Estimated GFR 112; Glucose 92 mg/dL (70-105); Potassium 4.1 mmol/L (3.5-5.1); Sodium 142 mmol/L (136-145)
[2022-05-15 09:44] LABS: Vancomycin, Trough 16.6 ug/mL
[2022-05-15] MEDS: Vancomycin HCl 500 MG in Sodium Chloride 0.9% 100 ML IVPB SCH ×2 (09:57→21:39)
[2022-05-15] MEDS: Folic Acid 1 MG TAB PO SCH (21:39)
[2022-05-15] MEDS: Cyanocobalamin (Vitamin B-12) 1,000 MCG TAB PO SCH (21:39)
[2022-05-15] MEDS: Zinc Sulfate 220 MG CAP PO SCH (21:39)
[2022-05-16] MEDS: Cefepime 2 GM in Sodium Chloride 0.9% 100 ML IVPB SCH ×2 (01:20→13:06)
[2022-05-16] MEDS: Potassium Chloride 20 MEQ TAB PO SCH (08:33)
[2022-05-16] MEDS: Saccharomyces boulardii 250 MG CAP PO SCH (08:33)
[2022-05-16] MEDS: Senokot S 8.6-50 MG TAB PO SCH ×2 (08:33→21:43)
[2022-05-16] MEDS: Multivit, Therapeutic 1 TAB PO SCH (08:33)
[2022-05-16 09:54] LABS: Vancomycin, Trough 18.7 ug/mL
[2022-05-16] MEDS: Vancomycin HCl 500 MG in Sodium Chloride 0.9% 100 ML IVPB SCH ×2 (10:17→21:31)
[2022-05-16] MEDS: Folic Acid 1 MG TAB PO SCH (21:31)
[2022-05-16] MEDS: Zinc Sulfate 220 MG CAP PO SCH (21:31)
[2022-05-16] MEDS: Cyanocobalamin (Vitamin B-12) 1,000 MCG TAB PO SCH (21:31)
[2022-05-17] MEDS: Cefepime 2 GM in Sodium Chloride 0.9% 100 ML IVPB SCH ×2 (01:17→13:33)
[2022-05-17] MEDS: Potassium Chloride 20 MEQ TAB PO SCH (10:34)
[2022-05-17] MEDS: Senokot S 8.6-50 MG TAB PO SCH ×2 (10:34→20:40)
[2022-05-17] MEDS: Saccharomyces boulardii 250 MG CAP PO SCH (10:34)
[2022-05-17] MEDS: Multivit, Therapeutic 1 TAB PO SCH (10:35)
[2022-05-17] MEDS: Vancomycin HCl 500 MG in Sodium Chloride 0.9% 100 ML IVPB SCH ×2 (10:35→20:38)
[2022-05-17] MEDS: Folic Acid 1 MG TAB PO SCH (20:38)
[2022-05-17] MEDS: Cyanocobalamin (Vitamin B-12) 1,000 MCG TAB PO SCH (20:39)
[2022-05-17] MEDS: Zinc Sulfate 220 MG CAP PO SCH (20:39)
[2022-05-17 21:27] LABS: Vancomycin, Trough 18.4 ug/mL
[2022-05-18] MEDS: Cefepime 2 GM in Sodium Chloride 0.9% 100 ML IVPB SCH ×2 (01:14→12:04)
[2022-05-18] MEDS: Potassium Chloride 20 MEQ TAB PO SCH (08:35)
[2022-05-18] MEDS: Saccharomyces boulardii 250 MG CAP PO SCH (08:35)
[2022-05-18] MEDS: Multivit, Therapeutic 1 TAB PO SCH (08:36)
[2022-05-18] MEDS: Senokot S 8.6-50 MG TAB PO SCH ×2 (08:36→20:30)
[2022-05-18] MEDS: Vancomycin HCl 500 MG in Sodium Chloride 0.9% 100 ML IVPB SCH ×2 (08:36→21:42)
[2022-05-18] MEDS: Cyanocobalamin (Vitamin B-12) 1,000 MCG TAB PO SCH (20:30)
[2022-05-18] MEDS: Folic Acid 1 MG TAB PO SCH (20:30)
[2022-05-18] MEDS: Zinc Sulfate 220 MG CAP PO SCH (20:30)
[2022-05-19] MEDS: Cefepime 2 GM in Sodium Chloride 0.9% 100 ML IVPB SCH ×2 (00:59→13:29)
[2022-05-19] MEDS: Senokot S 8.6-50 MG TAB PO SCH ×2 (09:10→21:28)
[2022-05-19] MEDS: Potassium Chloride 20 MEQ TAB PO SCH (09:10)
[2022-05-19] MEDS: Multivit, Therapeutic 1 TAB PO SCH (09:10)
[2022-05-19] MEDS: Saccharomyces boulardii 250 MG CAP PO SCH (09:11)
[2022-05-19] MEDS: Vancomycin HCl 500 MG in Sodium Chloride 0.9% 100 ML IVPB SCH ×2 (09:11→21:29)
[2022-05-19 09:53] LABS: #Eosinphils 0.3 thou/uL (0.0-0.7); #Lymphocytes 1.6 thou/uL (1.20-3.40); #Monocytes 0.6 thou/uL (0.11-0.59); #Neutrophils 4.3 thou/uL (1.40-6.50); %Basophils 0.5 % (0.0-1.0); %Lymphocytes 23.4 % (21.0-51.0); %Neutrophils 63.1 % (42.0-75.0); Hemoglobin 8.8 g/dL (14.0-18.0); Mean Corpuscular HGB CONC 30.6 g/dL (32.0-36.0); Mean Corpuscular Hemoglobin 26.3 pg (27.0-31.0); Mean Corpuscular Volume 85.9 fl (78.0-98.0); Mean Platelet Volume 8.5 fL (7.4-10.4); Platelet Count 286 10x3/uL (130-400); RBC Distribution Width 20.4 % (11.5-14.5); Red Blood Cell (RBC) Count 3.35 mill/uL (4.70-6.10); White Blood Cell (WBC) Count 6.8 10x3/uL (4.8-10.8)
[2022-05-19 10:10] LABS: Anion Gap 12 mmol/L (10-20); BUN (Urea Nitrogen) 9 mg/dL (8.9-20.6); Calc. Creatinine Clearance 168 mL/min (70-130); Calcium 8.5 mg/dL (7.8-10.44); Carbon Dioxide 25 mmol/L (22-29); Chloride 110 mmol/L (98-107); Estimated GFR 113; Glucose 85 mg/dL (70-105); Potassium 3.7 mmol/L (3.5-5.1); Sodium 143 mmol/L (136-145)
[2022-05-19] MEDS: Zinc Sulfate 220 MG CAP PO SCH (21:28)
[2022-05-19] MEDS: Cyanocobalamin (Vitamin B-12) 1,000 MCG TAB PO SCH (21:28)
[2022-05-19] MEDS: Folic Acid 1 MG TAB PO SCH (21:28)
[2022-05-20] MEDS: Cefepime 2 GM in Sodium Chloride 0.9% 100 ML IVPB SCH ×2 (01:23→12:38)
[2022-05-20] MEDS: Saccharomyces boulardii 250 MG CAP PO SCH (08:53)
[2022-05-20] MEDS: Vancomycin HCl 500 MG in Sodium Chloride 0.9% 100 ML IVPB SCH ×2 (08:53→22:09)
[2022-05-20] MEDS: Potassium Chloride 20 MEQ TAB PO SCH (08:53)
[2022-05-20] MEDS: Multivit, Therapeutic 1 TAB PO SCH (08:53)
[2022-05-20] MEDS: Senokot S 8.6-50 MG TAB PO SCH ×2 (08:57→22:10)
[2022-05-20 21:33] LABS: Vancomycin, Trough 18.4 ug/mL
[2022-05-20] MEDS: Zinc Sulfate 220 MG CAP PO SCH (22:10)
[2022-05-20] MEDS: Folic Acid 1 MG TAB PO SCH (22:10)
[2022-05-20] MEDS: Cyanocobalamin (Vitamin B-12) 1,000 MCG TAB PO SCH (22:10)
[2022-05-21] MEDS: Cefepime 2 GM in Sodium Chloride 0.9% 100 ML IVPB SCH ×2 (01:04→12:29)
[2022-05-21] MEDS: Vancomycin HCl 500 MG in Sodium Chloride 0.9% 100 ML IVPB SCH ×2 (08:33→21:19)
[2022-05-21] MEDS: Potassium Chloride 20 MEQ TAB PO SCH (08:33)
[2022-05-21] MEDS: Multivit, Therapeutic 1 TAB PO SCH (08:33)
[2022-05-21] MEDS: Saccharomyces boulardii 250 MG CAP PO SCH (08:33)
[2022-05-21] MEDS: Senokot S 8.6-50 MG TAB PO SCH ×2 (08:34→21:20)
[2022-05-21] MEDS: Cyanocobalamin (Vitamin B-12) 1,000 MCG TAB PO SCH (21:19)
[2022-05-21] MEDS: Zinc Sulfate 220 MG CAP PO SCH (21:19)
[2022-05-21] MEDS: Folic Acid 1 MG TAB PO SCH (21:19)
[2022-05-22] MEDS: Cefepime 2 GM in Sodium Chloride 0.9% 100 ML IVPB SCH ×2 (00:30→14:09)
[2022-05-22] MEDS: Saccharomyces boulardii 250 MG CAP PO SCH (08:30)
[2022-05-22] MEDS: Vancomycin HCl 500 MG in Sodium Chloride 0.9% 100 ML IVPB SCH ×2 (08:30→21:31)
[2022-05-22] MEDS: Potassium Chloride 20 MEQ TAB PO SCH (08:30)
[2022-05-22] MEDS: Multivit, Therapeutic 1 TAB PO SCH (08:30)
[2022-05-22] MEDS: Senokot S 8.6-50 MG TAB PO SCH ×2 (08:31→21:31)
[2022-05-22] MEDS: Zinc Sulfate 220 MG CAP PO SCH (21:30)
[2022-05-22] MEDS: Cyanocobalamin (Vitamin B-12) 1,000 MCG TAB PO SCH (21:30)
[2022-05-22] MEDS: Folic Acid 1 MG TAB PO SCH (21:30)
[2022-05-23] MEDS: Cefepime 2 GM in Sodium Chloride 0.9% 100 ML IVPB SCH ×2 (00:40→13:26)
[2022-05-23 07:35] LABS: #Eosinphils 0.4 thou/uL (0.0-0.7); #Lymphocytes 1.9 thou/uL (1.20-3.40); #Monocytes 0.8 thou/uL (0.11-0.59); #Neutrophils 4.6 thou/uL (1.40-6.50); %Basophils 0.6 % (0.0-1.0); %Lymphocytes 24.2 % (21.0-51.0); %Monocytes 10.5 % (0.0-10.0); %Neutrophils 59.7 % (42.0-75.0); Hemoglobin 8.9 g/dL (14.0-18.0); Mean Corpuscular HGB CONC 30.8 g/dL (32.0-36.0); Mean Corpuscular Hemoglobin 26.9 pg (27.0-31.0); Mean Corpuscular Volume 87.4 fl (78.0-98.0); Mean Platelet Volume 8.6 fL (7.4-10.4); Platelet Count 267 10x3/uL (130-400); RBC Distribution Width 20.1 % (11.5-14.5); Red Blood Cell (RBC) Count 3.29 mill/uL (4.70-6.10); White Blood Cell (WBC) Count 7.7 10x3/uL (4.8-10.8)
[2022-05-23 07:59] LABS: Anion Gap 12 mmol/L (10-20); BUN (Urea Nitrogen) 13 mg/dL (8.9-20.6); Calc. Creatinine Clearance 172 mL/min (70-130); Calcium 8.8 mg/dL (7.8-10.44); Carbon Dioxide 25 mmol/L (22-29); Chloride 107 mmol/L (98-107); Estimated GFR 113; Glucose 93 mg/dL (70-105); Potassium 3.4 mmol/L (3.5-5.1); Sodium 141 mmol/L (136-145)
[2022-05-23] MEDS: Multivit, Therapeutic 1 TAB PO SCH (08:13)
[2022-05-23] MEDS: Senokot S 8.6-50 MG TAB PO SCH ×2 (08:14→20:54)
[2022-05-23] MEDS: Potassium Chloride 20 MEQ TAB PO SCH (08:14)
[2022-05-23] MEDS: Saccharomyces boulardii 250 MG CAP PO SCH (08:14)
[2022-05-23] MEDS: Vancomycin HCl 500 MG in Sodium Chloride 0.9% 100 ML IVPB SCH ×2 (11:06→22:24)
[2022-05-23] MEDS ORDERED: Potassium Chloride 20 MEQ TAB PO SCH (12:00)
[2022-05-23] MEDS: Zinc Sulfate 220 MG CAP PO SCH (20:54)
[2022-05-23] MEDS: Cyanocobalamin (Vitamin B-12) 1,000 MCG TAB PO SCH (20:54)
[2022-05-23] MEDS: Folic Acid 1 MG TAB PO SCH (20:54)
[2022-05-24] MEDS: Cefepime 2 GM in Sodium Chloride 0.9% 100 ML IVPB SCH ×2 (01:04→13:28)
[2022-05-24] MEDS: Saccharomyces boulardii 250 MG CAP PO SCH (08:25)
[2022-05-24] MEDS: Senokot S 8.6-50 MG TAB PO SCH ×2 (08:25→20:07)
[2022-05-24] MEDS: Multivit, Therapeutic 1 TAB PO SCH (08:25)
[2022-05-24] MEDS: Potassium Chloride 20 MEQ TAB PO SCH (08:25)
[2022-05-24] MEDS: Vancomycin HCl 500 MG in Sodium Chloride 0.9% 100 ML IVPB SCH ×2 (10:05→21:33)
[2022-05-24] MEDS: Cyanocobalamin (Vitamin B-12) 1,000 MCG TAB PO SCH (20:06)
[2022-05-24] MEDS: Folic Acid 1 MG TAB PO SCH (20:06)
[2022-05-24] MEDS: Zinc Sulfate 220 MG CAP PO SCH (20:07)
[2022-05-25] MEDS: Cefepime 2 GM in Sodium Chloride 0.9% 100 ML IVPB SCH ×2 (00:34→12:38)
[2022-05-25 07:54] LABS: #Eosinphils 0.3 thou/uL (0.0-0.7); #Lymphocytes 1.2 thou/uL (1.20-3.40); #Monocytes 0.7 thou/uL (0.11-0.59); #Neutrophils 4.7 thou/uL (1.40-6.50); %Basophils 0.1 % (0.0-1.0); %Eosinophils 4.2 % (0.0-10.0); %Lymphocytes 17.5 % (21.0-51.0); %Monocytes 10.3 % (0.0-10.0); %Neutrophils 67.9 % (42.0-75.0); Hemoglobin 8.8 g/dL (14.0-18.0); Mean Corpuscular HGB CONC 30.7 g/dL (32.0-36.0); Mean Corpuscular Hemoglobin 26.5 pg (27.0-31.0); Mean Corpuscular Volume 86.4 fl (78.0-98.0); Mean Platelet Volume 8.6 fL (7.4-10.4); Platelet Count 243 10x3/uL (130-400); RBC Distribution Width 20.1 % (11.5-14.5); Red Blood Cell (RBC) Count 3.33 mill/uL (4.70-6.10)
[2022-05-25 08:17] LABS: Anion Gap 14 mmol/L (10-20); BUN (Urea Nitrogen) 11 mg/dL (8.9-20.6); Calc. Creatinine Clearance 164 mL/min (70-130); Calcium 8.8 mg/dL (7.8-10.44); Carbon Dioxide 23 mmol/L (22-29); Chloride 106 mmol/L (98-107); Estimated GFR 112; Glucose 95 mg/dL (70-105); Potassium 3.5 mmol/L (3.5-5.1); Sodium 139 mmol/L (136-145)
[2022-05-25] MEDS: Senokot S 8.6-50 MG TAB PO SCH ×2 (08:24→20:20)
[2022-05-25] MEDS: Saccharomyces boulardii 250 MG CAP PO SCH (08:24)
[2022-05-25] MEDS: Potassium Chloride 20 MEQ TAB PO SCH (08:24)
[2022-05-25] MEDS: Multivit, Therapeutic 1 TAB PO SCH (08:24)
[2022-05-25] MEDS: Vancomycin HCl 500 MG in Sodium Chloride 0.9% 100 ML IVPB SCH ×2 (09:55→23:01)
[2022-05-25] MEDS ORDERED: Potassium Chloride 20 MEQ TAB PO SCH (13:45)
[2022-05-25] MEDS: Cyanocobalamin (Vitamin B-12) 1,000 MCG TAB PO SCH (20:20)
[2022-05-25] MEDS: Zinc Sulfate 220 MG CAP PO SCH (20:20)
[2022-05-25] MEDS: Acetaminophen 325 MG TAB PO PRN (20:20)
[2022-05-25] MEDS: Folic Acid 1 MG TAB PO SCH (20:20)
[2022-05-26] MEDS: Cefepime 2 GM in Sodium Chloride 0.9% 100 ML IVPB SCH ×2 (01:10→12:41)
[2022-05-26 08:28] VITALS: BP 101/68; TEMP 98.4
[2022-05-26] MEDS: Multivit, Therapeutic 1 TAB PO SCH (08:45)
[2022-05-26] MEDS: Potassium Chloride 20 MEQ TAB PO SCH (08:45)
[2022-05-26] MEDS: Senokot S 8.6-50 MG TAB PO SCH (08:45)
[2022-05-26] MEDS: Saccharomyces boulardii 250 MG CAP PO SCH (08:45)
[2022-05-26] MEDS: Vancomycin HCl 500 MG in Sodium Chloride 0.9% 100 ML IVPB SCH (11:33)
== END 2022-05-26 14:38 | DRG 853 ==
LOC: ERS 19:19 → CCU 21:37 → T4-B 05-02 16:06
PROVIDERS: ADMIT Internal Medicine; ATTEND Internal Medicine
PROC: 3E03329 Introduction of Other Anti-infective into Peripheral Vein, Percutaneous Approach (ICD-10-PCS; 2022-05-01)
PROC: 3E033XZ Introduction of Vasopressor into Peripheral Vein, Percutaneous Approach (ICD-10-PCS; 2022-05-01)
PROC: 30233N1 Transfusion of Nonautologous Red Blood Cells into Peripheral Vein, Percutaneous Approach (ICD-10-PCS; 2022-05-07)
PROC: 0QB20ZZ Excision of Right Pelvic Bone, Open Approach (ICD-10-PCS; principal; 2022-05-09)
PROC: 0JCC0ZZ Extirpation of Matter from Pelvic Region Subcutaneous Tissue and Fascia, Open Approach (ICD-10-PCS; 2022-05-09)
PROC: 02HV33Z Insertion of Infusion Device into Superior Vena Cava, Percutaneous Approach (ICD-10-PCS; 2022-05-14)
PROC: B5181ZA Fluoroscopy of Superior Vena Cava using Low Osmolar Contrast, Guidance (ICD-10-PCS; 2022-05-14)
PROC: B548ZZA Ultrasonography of Superior Vena Cava, Guidance (ICD-10-PCS; 2022-05-14)
DX: A41.4 Sepsis due to anaerobes (principal); R65.21 Severe sepsis with septic shock; A41.51 Sepsis due to Escherichia coli [E. coli]; Z20.822 Contact with and (suspected) exposure to COVID-19; L89.153 Pressure ulcer of sacral region, stage 3; L89.154 Pressure ulcer of sacral region, stage 4; L89.613 Pressure ulcer of right heel, stage 3; L89.313 Pressure ulcer of right buttock, stage 3; T83.511A Infection and inflammatory reaction due to indwelling urethral catheter, initial encounter; G82.20 Paraplegia, unspecified; N39.0 Urinary tract infection, site not specified; N17.9 Acute kidney failure, unspecified; M86.8X5 Other osteomyelitis, thigh; M79.5 Residual foreign body in soft tissue; F12.10 Cannabis abuse, uncomplicated; F17.210 Nicotine dependence, cigarettes, uncomplicated; Y84.6 Urinary catheterization as the cause of abnormal reaction of the patient, or of later complication, without mention of misadventure at the time of the procedure; R74.01 Elevation of levels of liver transaminase levels; D63.8 Anemia in other chronic diseases classified elsewhere; N31.9 Neuromuscular dysfunction of bladder, unspecified; K21.9 Gastro-esophageal reflux disease without esophagitis; L89.622 Pressure ulcer of left heel, stage 2; E87.6 Hypokalemia; E83.42 Hypomagnesemia; R94.5 Abnormal results of liver function studies; R11.0 Nausea; Z79.899 Other long term (current) drug therapy; Z98.890 Other specified postprocedural states
CPT/HCPCS: 36415; 36430; 36569; 51702; 71045; 76770; 80048; 80053; 80202; 81001; 81003; 81015; 82565; 82570; 82728; 83540; 83550; 83605; 83735; 84100; 84300; 85025; 85652; 86140; 86850; 86900; 86901; 87040; 87070; 87077; 87086; 87149; 87186; 87205; 87324; 87449; 87811; 88300; 93005; 96361; 96365; 96366; 96367; 96368; 97139; C1751; J0610; J0692; J1644; J1956; J2250; J2370; J2405; J2704; J2916; J3370; J3475; J3490; J7050; J7120; P9016; Q0162; U0002